=== PATIENT | female | born 1990 | race Caucasian/White ===

== ENCOUNTER → 2020-02-06 | Outpatient (CLI) | payer OTHER ==
[~2020-02-06] MED LIST: HYDROCODONE-AP1 EAC6 PO; KEFLEX500 M1 PO; NOHOMEMEDICATIONS
== END ==
LOC: LAB 12:18
PROVIDERS: ATTEND Anesthesiology
DX: Z01.812 Encounter for preprocedural laboratory examination (principal); Z20.828 Contact with and (suspected) exposure to other viral communicable diseases